=== PATIENT | female | born 1955 | race Caucasian/White ===

== ENCOUNTER 2023-05-30 14:47 | Emergency (ER) | payer SELFPAY ==
[~2023-05-30] VITALS: Ht 162.6 cm; Wt 85.0 kg
[2023-05-30 14:57] VITALS: BP 114/76; PULSE 74; RESP 16; TEMP 98.1; O2SAT 98
== END 2023-05-30 22:31 | disposition home or self-care (01) ==
LOC: ER 14:57
DX: F10.129 Alcohol abuse with intoxication, unspecified (principal); E11.9 Type 2 diabetes mellitus without complications; Y90.9 Presence of alcohol in blood, level not specified
CPT/HCPCS: 82962; 99283

== ENCOUNTER 2024-10-12 12:52 | Emergency (ER) | payer MEDICARE ==
[~2024-10-12] VITALS: Ht 162.6 cm; Wt 69.0 kg
[~2024-10-12 12:52] MED LIST: AMLO5TAB88 PO; LISI10TA26 PO
[2024-10-12 12:55] VITALS: O2SAT 98
[2024-10-12 14:59] LABS: CHLORIDE 108 mEq/L (98-107); POTASSIUM 3.7 mEq/L (3.5-5.1); SODIUM 146 mEq/L (136-145)
[2024-10-12 15:00] LABS: CARBON DIOXIDE 24 mEq/L (21-32)
[2024-10-12 15:05] LABS: CREATININE 0.6 mg/dL (0.6-1.0); GLUCOSE 132 mg/dL (70-105); UREA NITROGEN BLOOD 14 mg/dL (9-23)
[2024-10-12 15:06] LABS: ETHANOL BLOOD 265 mg/dL (<10)
[2024-10-12 15:29] LABS: BASOPHILS % 2.1 % (0.0-2.0); EOSINOPHILS % 0.8 % (0.0-5.0); HEMATOCRIT. 40.7 % (36.0-48.0); HEMOGLOBIN. 12.9 g/dL (12.0-16.0); LYMPHOCYTES % 27.7 % (20.0-50.0); MEAN CORPUSCULAR HEMOGLOBIN 26.1 pg (28.0-32.0); MEAN CORPUSCULAR HGB CONC 31.6 g/dL (31.0-37.0); MEAN CORPUSCULAR VOLUME 82.5 fL (81.0-99.0); MONOCYTES % 11.5 % (2.0-8.0); NEUTROPHILS % 57.9 % (40.0-76.0); PLATELET 113 x1000/uL (130-400); RED BLOOD CELL COUNT 4.94 mill/uL (4.2-5.4); WHITE BLOOD COUNT 4.2 x1000/uL (4.5-11.0)
[2024-10-12 17:50] VITALS: BP 160/80; PULSE 94; RESP 18; TEMP 36.7; O2SAT 95
== END 2024-10-12 17:55 | disposition home or self-care (01) ==
LOC: ER 12:52
DX: F10.129 Alcohol abuse with intoxication, unspecified (principal); E11.9 Type 2 diabetes mellitus without complications; Z79.899 Other long term (current) drug therapy; Z91.148 Patient's other noncompliance with medication regimen for other reason; R40.4 Transient alteration of awareness; W19.XXXA Unspecified fall, initial encounter; Y93.89 Activity, other specified; Y92.89 Other specified places as the place of occurrence of the external cause; Y99.8 Other external cause status; Y90.8 Blood alcohol level of 240 mg/100 ml or more
CPT/HCPCS: 36415; 80048; 80320; 85025; 99284; G0480